=== PATIENT | female | born 1975 | race Caucasian/White ===

== ENCOUNTER 2017-03-28 11:44 | Emergency (ER) | payer OTHER, SELFPAY ==
[2017-03-28 11:45] VITALS: BP 129/68; PULSE 64; RESP 14; TEMP 36.6; O2SAT 99; BMI 26.4
[2017-03-28 13:11] VITALS: BP 125/91; PULSE 83; RESP 16; O2SAT 96
--- NOTE | 2017-03-28 13:20 | CT_ITS ---
STUDY: CT BRAIN WITHOUT CONTRAST REASON FOR EXAM: Female, 41 years old. Dizziness and headaches. Palpitations. RADIATION DOSAGE (If Supplied By Facility): CTDIvol = ( 44.99 ) mGy, DLP = ( 745.49 ) mGycm TECHNIQUE: Transaxial CT imaging of the brain was performed without administration of intravenous contrast material. Individualized dose optimization techniques were used for this CT. COMPARISON: Comparison is made with prior study dated July 10, 2014. FINDINGS: Normal soft tissue structures. Normal calvarium. Normal size ventricles and extra-axial spaces for the patient's age. Normal white matter tracts of the cerebral hemispheres. Normal basal ganglia and thalami. Normal brainstem. Normal cerebellum. There is no intracranial hemorrhage. There are no findings of an acute ischemic infarction. Normal visualized paranasal sinuses. CT/Brain/Head without Contrast IMPRESSION: Normal unenhanced CT scan of the brain. Electronically Signed: Jamel Curtis MD at 15:01 EST Tel [phone], Service support ,
[2017-03-28] MEDS: Meclizine 12.5 MG Tablet 25 MG PO (14:09)
[2017-03-28] MEDS: 0.9% Normal Saline 1,000 ML 999 ML IV (14:09)
[2017-03-28 14:20] LABS: AST(SGOT) 10 U/L (15-37); Alanine Aminotransfer ALT/SGPT 14 U/L (12-78); Albumin, Serum 3.8 g/dL (3.4-5.0); Alkaline Phosphatase 69 U/L (45-117); Anion Gap 7 (5-15); BUN 7 mg/dL (7-18); BUN/Creat Ratio 8.8 RATIO (10-20); Calcium,Total 8.6 mg/dL (8.5-10.1); Chloride 99 mmol/L (98-107); EST Glomerular Filtration Rate 84 mL/min (>60); Est Glom Filt Rate - Afr Amer 102 mL/min (>60); Estimated Creatinine Clearance 86.63 ml/min; Globulin 3.9 g/dL (2.2-4.2); Glucose 82 mg/dL (70-110); Potassium 3.5 mmol/L (3.5-5.1); Protein, Total 7.7 g/dL (6.4-8.2); Sodium Level 136 mmol/L (136-145)
[2017-03-28 14:30] LABS: Valproic Acid (Depakene) Level 68 ug/mL (50-100)
[2017-03-28 15:02] LABS: Pregnancy, Serum, hCG Quali. NEGATIVE Negative (0-9 Nonpreg)
--- NOTE | 2017-03-28 15:20 | ED.VISSUMM ---
- ER Visit Summary Date of Service: 03/28/17 Chief Complaint: Dizziness History of Present Illness: The patient is a 41 F patient presenting for evaluation secondary to dizziness. Patient states this started yesterday when she was rolling over in bed. She describes it as a spinning sensation seems to be worse with change position. Also has been associated with somewhat of an unsteady gait and intermittent right-sided headaches and generalized tingling. Of note the patient has a strong history of depression and is on multiple medications and recently underwent a upward titration of Depakote. She currently is on maximum dose 3 pills a day. She denies any visual changes. She denies any head injuries. She denies any fevers. Review of systems otherwise negative. Physical Examination: Vital signs are within normal limits, patient is afebrile. General: Patient is well-nourished well-developed and in no acute distress. Head: Normocephalic, atraumatic Eyes: Pupils equal round and reactive bilaterally, extra occular motion intact bialterally ENT: Moist mucous membranes Neck: Supple, no lymphadenopathy, no JVD, no meningismus CVS: Heart regular rate and rhythm, no murmurs, rubs or gallops, radial pulses 2+ bilaterally Resp: Respirations nondistressed, lung sounds clear bilaterally Abdomen: Soft, nontender, nondistended, no palpable masses, normal bowel sounds Back: Nontender Extremities: Nontender, atraumatic, active full range of motion, no peripheral edema Skin: warm, no rashes, no petechia Neuro: Alert and oriented x 4, CN 2-12 intact, no lateralizing neurological defecits, negative Roxana-Hallpike maneuver, no evidence of inducible nystagmus. Normal cerebellar testing. Psyc: Normal affect Test Results: CT brain found to be negative. CMP, Depakote level, and hCG all within normal limits. Emergency Department Course and Treatment: Patient presented secondary to dizziness. CT was performed rules out possibility of bleeding or other intracranial pathology. Chemistry and liver panels are normal. Depakote level is therapeutic, hCG found to be negative. Patient was given meclizine and had some improvement. At this point patient likely is experiencing somewhat of the medication side effect. Patient was recommended to take meclizine and follow-up with her primary care physician for this Disposition: Discharge Impression: 1. Probable medication side effect This note was generated with Soc[employer] software. It may contain incorrect words, spelling, and punctuation that were not noted in review of the chart prior to signing ED Disposition - Plan for ED Patient: Disposition: Home or Assisted Living Chief Complaint: Dizziness Diagnosis: Medication side effect Instructions: ED Dizziness [facility] Referrals: Nida Light MD [Primary Care Provider] - 1 Week
--- NOTE | 2017-03-28 15:25 | ED.DCSUM_ITS ---
- ER Visit Summary Date of Service: 03/28/17 Chief Complaint: Dizziness History of Present Illness: The patient is a 41 F patient presenting for evaluation secondary to dizziness. Patient states this started yesterday when she was rolling over in bed. She describes it as a spinning sensation seems to be worse with change position. Also has been associated with somewhat of an unsteady gait and intermittent right-sided headaches and generalized tingling. Of note the patient has a strong history of depression and is on multiple medications and recently underwent a upward titration of Depakote. She currently is on maximum dose 3 pills a day. She denies any visual changes. She denies any head injuries. She denies any fevers. Review of systems otherwise negative. Physical Examination: Vital signs are within normal limits, patient is afebrile. General: Patient is well-nourished well-developed and in no acute distress. Head: Normocephalic, atraumatic Eyes: Pupils equal round and reactive bilaterally, extra occular motion intact bialterally ENT: Moist mucous membranes Neck: Supple, no lymphadenopathy, no JVD, no meningismus CVS: Heart regular rate and rhythm, no murmurs, rubs or gallops, radial pulses 2 + bilaterally Resp: Respirations nondistressed, lung sounds clear bilaterally Abdomen: Soft, nontender, nondistended, no palpable masses, normal bowel sounds Back: Nontender Extremities: Nontender, atraumatic, active full range of motion, no peripheral edema Skin: warm, no rashes, no petechia Neuro: Alert and oriented x 4, CN 2-12 intact, no lateralizing neurological defecits, negative Zulma-Hallpike maneuver, no evidence of inducible nystagmus. Normal cerebellar testing. Psyc: Normal affect Test Results: CT brain found to be negative. CMP, Depakote level, and hCG all within normal limits. Emergency Department Course and Treatment: Patient presented secondary to dizziness. CT was performed rules out possibility of bleeding or other intracranial pathology. Chemistry and liver panels are normal. Depakote level is therapeutic, hCG found to be negative. Patient was given meclizine and had some improvement. At this point patient likely is experiencing somewhat of the medication side effect. Patient was recommended to take meclizine and follow- up with her primary care physician for this Disposition: Discharge Impression: 1. Probable medication side effect This note was generated with [employer] software. It may contain incorrect words, spelling, and punctuation that were not noted in review of the chart prior to signing ED Disposition - Plan for ED Patient: Disposition: Home or Assisted Living Chief Complaint: Dizziness Diagnosis: Medication side effect Instructions: ED Dizziness [facility] Referrals: Nida Light MD [Primary Care Provider] - 1 Week
[2017-03-28 15:36] VITALS: BP 135/81; PULSE 71; RESP 16; O2SAT 100
--- NOTE | 2017-03-28 15:37 | ED.RN ---
THIS NURSE REVIEWED D/C INSTRUCTIONS WITH PT. PT VERBALIZED UNDERSTANDING OF INSTRUCTIONS. IV D/C. IV CATHETER INTACT. PT TOLERATED WELL. PT DENIES FURTHER NEEDS OR QUESTIONS AT THIS TIME.
== END 2017-03-28 15:37 | disposition home or self-care (01) ==
PROVIDERS: Emergency Provider Emergency Medicine; Family Provider Internal Medicine; PCP Internal Medicine
DX: R42 Dizziness and giddiness (principal); R51 Headache; R26.81 Unsteadiness on feet; R20.2 Paresthesia of skin; F32.9 Major depressive disorder, single episode, unspecified; Z79.899 Other long term (current) drug therapy
CPT/HCPCS: 70450; 80053; 80164; 84703; 96360; 99282; J7030; A4216

== ENCOUNTER 2017-11-05 09:00 | Outpatient (RCR) | payer OTHER, SELFPAY ==
--- NOTE | 2017-11-05 10:20 | BH.SGPN.GN ---
Behaviors/Verbalizations/Mental Status: [] Pt eye contact fair, casually dressed, motor activity restless, speech normal rate and tone, mood anxious, congruent affect, thoughts linear and logical, no evidence of delusions or hallucinations. Client Response/Progress/Benefit: [] Client initially quiet, however seemed to connect with others and showed increased engagement by contributing her thoughts and feelings. Client connected with another group member's comments about anxiety depression being debilitating, shared she has a difficult time getting out of bed and showering. Client reported she has not easier time rationalizing why she should not take care of herself and has extreme difficulty with finding any reason or motivation to do anything throughout the day. Client identified her top stressors to include: Guilt and needing to be the best at her job. Client shared shared she is a lot more stressors but recognizes guilt need to be the best her job are the stressors that impact her the most. Client able to recognize that her guilt can result in her self sabotaging because she starts to believe I do not deserve to feel happy. Client mentioned multiple times throughout session, how do you stop thinking that way and seemed to benefit from support and feedback from peers. Client to continue IOP level of care to stabilize mood, improve daily functioning and prevent decompensation. Narrative Note: []
--- NOTE | 2017-11-05 11:30 | BH.SGPN.GN ---
Behaviors/Verbalizations/Mental Status: []Pt eye contact fair, casually dressed, motor activity restless, speech normal rate and tone, mood anxious and depressed, congruent affect, thoughts linear and logical, no evidence of delusions or hallucinations. Client Response/Progress/Benefit: []Client demonstrated increased comfort and engagement during group activity. Client verbalized her thoughts and ideas during group activity and made supportive comments to others. Client reported being able to stay calm in the moment and staying focused on the specific task helped the group be successful with managing stress in the moment. Client shared she connected with all of the A's from the 4 A's of managing stress, however struggles with believing she can apply the strategies in skills due to her current negative thought patterns. Client shared she recognizes her challenge of setting boundaries often increases her stress level because she tends to overload herself with tasks that she can't complete. Client seemed to benefit from learning about various strategies to help decrease and manage stress. Narrative Note: []
--- NOTE | 2017-11-05 15:56 | BH.MDN ---
Multi-Disciplinary Note - Note 30-min Individual Time Started:: 09:30 Date: 11/05/17 Purpose of session/treatment goals addressed:: Met with pt at her request to ease anxiety related to starting the program as this was her first day. Updated previous intake assessment to ensure most accurate information. Used the session to identify treatment plan goals and to assess current risk. Eye Contact:: Good Motor Activity:: Restless Appearance:: Casual Speech:: Appropriate Mood:: Anxious, Depressed Affect:: Congruent Thoughts:: Linear, Logical, No evidence of hallucinations/delusions noted Staff Interventions:: Allowed pt to vent frustrations, fears, and emotions which are affecting daily functioning. Utilized ME techniques to elicit change behaviors. Answered questions reagrding IOP to ease anxiety. Client Response:: Pt apologized for not starting IOP last week as discussed, however stated that her anxiety, fear, and depression kept her from following through. We processed her emotions related to IOP and she stated that she knows that she needs to start the program. Discussed recent stressors related to home life as she is not happy and feels that her family can go on living without me and it won't be a big deal beleiving that she is not appreciated which is a big trigger to her depression and anxiety. 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 Currently not linked with any MH outpatient providers. Indetified goals to reduce depressive symptoms, increase motivation, decrease anxiety, and learn coping strategies for negative thoughts. Risks/Concerns:: No risks of concerns noted. Denies any active suicidal ideations, plan, or intent. Reports that she has fleeting suicidal ideations which are chronic in nature. Identified protective factors such as children and work. 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 Does not present as imminent danger to self due to no active suicidal ideations, plan, or intent. Progress Toward Goals/Plan:: Limited progress noted as this way pt's first IOP session. Benefited from counseling to ease anxiety related to first day in IOP. Will continue in IOP to stablize mood, decrease depression, decrease intensitiy, frequency, and duration of SI, and prevent further decompensation. Time Stopped:: 10:00
--- NOTE | 2017-11-06 09:07 | BH.SGPN.GN ---
Behaviors/Verbalizations/Mental Status: [Client maintained good, at times intense eye contact, casually dressed - grooming and hygiene well tended to, motor activity WNL - appearing restless when her turn to process, mood depressed, irritable, expressed as angry and driven, affect congruent, thoughts linear and logical, no evidence of delusions or hallucinations. Therapist reviewed client?s symptom tracker to assess for intensity of mental health symptoms and identify risk for suicide. No signs of suicidal ideation, plan, or intent to date.] Client Response/Progress/Benefit: []Pt was an active participant in group discussion. Emotion for today is ?angry, driven, scared?. Shared that she had not arrived home from work until 4am this morning and discussed feeling tired and frustrated as a result. Shared a miscommunication with a support which resulted in pt taking on more responsibilities than she can handle. Insight that she is the one responsible for setting boundaries and reports plans to do so this afternoon. Expressed plans to communicate her needs with her friend this afternoon. Progress noted per pt report. Benefited from group support, encouragement, and feedback. Will continue IOP tx to prevent decompensation, increase mood stability, and reduce mental health sx severity. Narrative Note: []
--- NOTE | 2017-11-06 10:24 | BH.SGPN.GN ---
Behaviors/Verbalizations/Mental Status: []Client alert and oriented, neatly dressed and groomed. Eye contact good. Motor activity appropriate at the beginning and middle of group then became restless. Speech at the beginning and middle of group was within normal range, but nearing the end of session became circumstantial and rapid. Affect congruent, mood anxious. Thoughts linear, logical, no signs of hallucinations or delusions at the beginning and middle of group. Client's thoughts became racing nearing the end of group when discussing a trauma trigger. Client Response/Progress/Benefit: []client responded well to session, receptive to feedback and gentle challenging. Client appeared to connect with the quote sharing, comfort keeps you stuck and so does society. Client shared she constantly feels pressured to be the best and make positive changes which increases clients anxiety and makes client feel like she can never be satisfied. Client processed with the group the different emotions associated with change and how these emotions impact how one manages change. Client stated for her, change typically makes client feel paralyzed, panicked, and overwhelmed which has negatively impacted how client views change. Client began experiencing anxiety symptoms while discussing a past situation. Client able to calm down during break using grounding techniques with therapists help. Client appeared to benefit from increasing awareness of how emotions impact how one manages change. Clients progressed limited as it is her second day of IOP. Client to continue IOP to promote mood stability and prevent decompensation
--- NOTE | 2017-11-06 11:33 | BH.SGPN.GN ---
Behaviors/Verbalizations/Mental Status: []Client alert and oriented, neatly dressed and groomed. Eye contact good. Motor activity appropriate. Speech within normal limits. Affect full, mood euthymic- improved from previous session. Thoughts linear, logical, no signs of hallucinations or delusions. Client Response/Progress/Benefit: []Client responded well to session, contributing positively to discussion. Client engaged in the group activity that portrayed what change can look like an feel like. Client reported the activity was frustrating at times because I wanted to be the best and get the highest number. Client shared she is aware that her all or nothing thinking and high expectations have been a barrier for client when faced with change. Client identified when she got hired for her current job as a time when she experienced a positive change. Client helped the group create strategies to better manage change such as identifying barriers, reaching out to positive supports, and challenging unrealistic expectations. Client appeared to benefit from identifying times when change was positive. Progress noted in clients increased self-awareness. Client to continue IOP to increase mood stability and prevent decompensation.
--- NOTE | 2017-11-07 10:15 | BH.SGPN.GN ---
Patient joined group from [id number] Behaviors/Verbalizations/Mental Status: []Pt eye contact fair, casually dressed, motor activity restless, speech normal rate and tone, mood depressed and anxious, constricted affect, thoughts linear and logical, no evidence of delusions or hallucinations. Client Response/Progress/Benefit: []Pt active participant AEB pt contributing to group and engaging in activity. Pt connected with the quote stated that often the right path is not easy. Pt recognized a pitfall for herself is overreacting to small issues and problems. When processing activity pt connected the importance of breathing to keep self calm in the moment. Pt also identified being open to others ideas and strategies could be helpful when trying to overcome personal pitfalls in life. Pt seemed to benefit from increased awareness of the impact personal pitfalls can have on progress. Narrative Note: []
--- NOTE | 2017-11-07 11:25 | BH.SGPN.GN ---
Behaviors/Verbalizations/Mental Status: []Pt eye contact fair, casually dressed, motor activity restless, speech normal rate and tone, mood anxious and depressed, tearful at times, congruent affect, thoughts linear and logical, no evidence of delusions or hallucinations. Client Response/Progress/Benefit: []Pt contributed positively to discussion and listened attentively to others. Pt reported her biggest personal pitfalls include: continuing to make the same choices over and over again, distorted thought that she is not allowed to fail and self-hate talk. Pt became tearful when talking about her self-hate talk because she stated it's so ingrained it's hard for her to believe anything positive she says about herself. Pt recognized it's important to have awareness of her personal pitfalls because then she can do something about it. Pt reported her goal for the next couple of days is to catch myself being negative towards herself. Pt seemed to benefit from increased self-awareness of her personal pitfalls and identifying a goal that can help her focus on overcoming one of her pitfalls. Pt progress AEB pt's increased self-awareness and increased engagement in treatment. Pt to continue IOP level of care to stabilize mood and prevent decompensation. Narrative Note: []
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
--- NOTE | 2017-11-07 12:56 | BH.DR.ITP ---
Initial Treatment Plan - Patient Information Visit Information: ADMISSION DATE: EXPECTED LOS: 4-6 weeks Diagnoses:: Bipolar disorder most recent episode depressed F 31.4 - Problems/Symptoms Problem #1:: Mood instability/mixed mood symptoms Symptom:: Sad mood, anhedonia, isolative behavior, irritability, passive thoughts of , biologic disruption of sleep and appetite Problem #2:: Anxiety Symptom:: Rumination, panic attacks
--- NOTE | 2017-11-10 09:05 | BH.SGPN.GN ---
Behaviors/Verbalizations/Mental Status: [Client maintained good eye contact, casually and cleanly dressed, motor activity restless - client shifting in seat and bouncing leg, speech normal tone - circumstantial, mood euthymic, affect congruent, thoughts linear and logical, no evidence of delusions or hallucinations. Therapist reviewed clients symptom tracker to assess for intensity of mental health symptoms and identify risk for suicide. No signs of suicidal ideation, plan, or intent to date. ] Client Response/Progress/Benefit: [Client responded well to session was actively engaged throughout. She did well to provide input to the discussion as well as positive support fellow participants as they discussed their own thoughts, feelings, and frustrations. Client indicated that she had difficulty sleeping over the weekend and expressed feeling as though she had hit manic mood. Client further elaborated that she had up for over 30 hours and experienced several mood swings between crying and feeling really determined but ultimately felt that her determination had won out in the end. She went on to discuss experiencing several positives over the weekend such as successfully accomplishing something for her community however declined to go into detail. Client is additionally working to identify how often she utilizes negative thinking styles in order to begin shifting her mindset. Client responded well. To benefit from being challenged by the group to reframe and replace each of these negative thoughts with 1 positive thought when identifying them. Client displaying progress in treatment regarding her levels of insight related to how her current thoughts impacts her mood and behaviors. Recommended continued IOP treatment in order to prevent decompensation as well as continue to improve client ability to manage mental health symptoms and consistently apply cognitive restructuring techniques.] Narrative Note: []
--- NOTE | 2017-11-10 10:20 | BH.SGPN.GN ---
Behaviors/Verbalizations/Mental Status: []Client alert and oriented, neatly dressed and groomed. Eye contact good. Motor activity appropriate. Speech rapid. Affect full, mood euthymic. Thoughts linear, logical, no signs of hallucinations or delusions. Client Response/Progress/Benefit: []client responded well to session, active participant. Client appeared to connect with the quote sharing, there can be a lot of reasons why we view things as impossible. Client reported mental health, the news and social media, and cognitive distortions can make some people view situations in life as impossible. Client stated having an impossible mindset can keep someone stuck in a negative loop like a figure-eight. Client engaged in an activity that at first appeared impossible, but with different ideas and communication can be solved. Client provided encouragement and ideas throughout activity. Client appeared to benefit from increasing awareness of how the impossible mindset can impact mental health. Progress noted in clients improved awareness of warning signs and barriers, but she continues to struggle with implementing internal coping skills rather than relying on external supports.
--- NOTE | 2017-11-10 11:20 | BH.SGPN.GN ---
Behaviors/Verbalizations/Mental Status: []Client alert and oriented, neatly dressed and groomed. Eye contact good. Motor activity appropriate. Speech within normal limits. Affect congruent, mood euthymic, reporting hypomania. Thoughts linear, logical, no signs of hallucinations or delusions. Client Response/Progress/Benefit: []Client responded well to session, providing insight to discussion, but engaging in side conversations that may not have been appropriate for a group setting. Client engaged in discussion of growth versus fixed mindset. Client self-identified with the fixed mindset sharing Im always all or nothing, but reported she is actively trying to have a more growth mindset. Client reported liking her current job was once something client thought would be impossible, but now client enjoys it. Client stated she is currently struggling with spending money to cope with her lack of physical connection with her . Client was encouraged to present this barrier to her individual IOP therapist to help client more effectively manage this barrier. Client helped the group identify internal and external resources to help overcome barriers such as positive self-talk, communication, and seeking support. Client appeared to benefit from learning about the benefits of a growth mindset and from identifying current barriers. Client seems to be progressing with increased self-awareness, but continues to report cognitive distortions, unrealistic expectations, and difficulty setting boundaries which may impact her progress.
--- NOTE | 2017-11-10 12:31 | BH.MTP_ITS ---
Master Treatment Plan - Patient Information Program Physician:: Dr. Rios Primary Therapist:: José Luis Phan - Psychiatric Diagnoses Psychiatric Diagnoses:: Bipolar, most recent depressed with mixed episodes Diagnosis Code(s):: F31.4 - Estimated LOS Estimated LOS (in weeks):: 8 Problem/Goal #1 - Problem/Goal #1 Stated Goal:: Client will increase mood stability and decrease depressive symptoms, isolative behaviors, and suicidal ideation due to Bipolar I through Intensive Outpatient Program Description of Barriers: chronic symptoms for 20 years, limited confidence in the effectiveness of counseling for her symptoms, Functional Impact: Pt's depression continues to impact relationships, social activities, and overall functioning. Wiil often spend days sleeping, avoiding others, and isolating. Reports increased in frequency, duration, and intensity of fleets suicidal thoughts. Goal Relevant Strengths/Supports: Appears motivation, intelligent, engaged in IOP - Objectives Objective #1 Stated Objective: Work with client to develop a ?crisis plan? which includes emergency telephone numbers, 3-4 coping strategies for SI, lists of supports, positive aspects of life, and motivations. Work with client to identify 3-4 sources or triggers to suicidal ideations to increase insight. Identify 3 effective thought-stopping skills to utilize. Interventions: Throught individual and group counseling will work with client to identify effective coping strategies and steps to take in time of mental health crisis. Discharge Criteria: Client will have achieved this goal once she completes safety plan and is able to utilize coping and thought replacement strategies. Target Date: 01/05/18 Review Date: 12/05/17 Objective #2 Stated Objective: Client will identify and replace 2-3 negative thinking patterns that mediate feelings of hopelessness and helplessness. Will be able to challenge and replace negative thoughts. Interventions: Through groups and individual therapy, pt. will be provided with education on cognitive distortions, schemas, mistaken beliefs, and identifying and combating negative self-talk. Therapist will help pt. explore connection between thoughts, feelings, and actions. Discharge Criteria: Pt. will be able to identify 2-3 negative thinking patterns and be able to effectively stop, challenge, or cope with those negative thoughts. Target Date: 01/05/18 Review Date: 12/05/17 Problem/Goal #2 - Problem/Goal #2 Stated Goal:: Stabilize anxiety level while increasing ability to function and decreasing panic attacks and ruminative thoughts on a daily basis through Intensive Outpatient Program. Description of Barriers: chronic symptoms for 20 years, limited confidence in the effectiveness of counseling for her symptoms, low self-esteem. Functional Impact: Anxiety impacts social activities and relationships. Panic attacks impacting daily functioning. Goal Relevant Strengths/Supports: appears motived, engaged in IOP, intelligent. - Objectives Objective #1 Stated Objective: Client with develop her own individualized Anxiety/Stress managment plan to implement during times of anxiety, panic, or overwhelming stress. Interventions: through group and individual sessions pt will be provided with education, coping skills, and strategies to manage symptoms. Discharge Criteria: Pt will have completed his own indivudalized anxeity management plan which include a step by step concrete plan to cope with panic, ruminations, and overwhelming stress. Target Date: 01/05/18 Review Date: 12/05/17 Objective #2 Stated Objective: Complete Cost/Benefit Analysis of Maintaining the Anxiety listing advantages and disadvantages of negative thoughts, fear, or anxiety. Interventions: Through individual and group counseling pt. will be provided with education on anxiety and effective coping skills. Will explore more in- depth with pt. cause and triggers to anxiety as well as obstacles to overcoming anxiety. Discharge Criteria: Will have completed cost analysis and be more self-aware of triggers to anxiety. Target Date: 01/05/18 Review Date: 12/05/17
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
--- NOTE | 2017-11-14 13:45 | BH.COMM ---
Communication Note - Communication with Client Communication Note: Pt cancelled today due to having to work late at her job.
--- NOTE | 2017-11-17 09:02 | BH.SGPN.GN ---
Behaviors/Verbalizations/Mental Status: []Client alert and oriented, hygiene good, dress casual. Eye contact poor, but then intense when talking about frustrations. Motor activity restless. Speech within normal limits, but using short remarks. Affect flat- tearful. Mood irritable. Thoughts linear, logical, no signs of hallucinations or delusions. Reviewed clients symptom tracker, no risk for suicidal ideation, plan, or intent as of 11/17/17. Client Response/Progress/Benefit: []Client responded somewhat well to session, tearful and giving short responses, but connecting with peers. Client shared feeling angry today due to feeling irrelevant at home and as though I'm never doing enough. Client stated part of her wants to not return home today and spend the next two nights in her car so the people in her life can think about how they treat me. Client received feedback from peers on communicating with her family so they not worry about client, which client did not appear receptive to. Client reported she plans to have an open mind today during group and take notes to help improve her mood. Client seemed to benefit from venting her current stressors in a safe environment. Progress noted in clients increased self-awareness, but she continues to struggle with emotional regulation and communicating needs.
--- NOTE | 2017-11-17 10:20 | BH.SGPN.GN ---
Behaviors/Verbalizations/Mental Status: [] Pt eye contact good, casually dressed, motor activity appropriate, speech normal rate and tone, mood anxious, congruent affect, thoughts linear and intact, no evidence of delusions or hallucinations. Client Response/Progress/Benefit: []Pt active participant AEB contributing thoughts and ideas to discussion, connected with peers. Pt reported often her reaction to a problem does not meet the size of the problem. Pt shared she recognizes when she overreacts it often creates additional problems. Pt recognized she cannot solve a problem if continues to have distorted and unhealthy thinking patterns. Pt struggled with recognizing what she can do to problem solve more effectively. With challenging of distorted thoughts pt recognized her thoughts continue to keep her stuck from forward progress. Pt seemed to benefit from learning about a problem solving method and practicing problem solving in the moment. Pt could identify the importance of communication and working as a team as helpful strategies to effectively problem solve. Narrative Note: []
--- NOTE | 2017-11-17 11:20 | BH.SGPN.GN ---
Behaviors/Verbalizations/Mental Status: []Pt left group at 1214 to meet with individual IOP counselor. Pt eye contact good, casually dressed, motor activity appropriate, speech normal rate and tone, mood agitated, congruent affect, thoughts linear and intact, no evidence of delusions or hallucinations. Client Response/Progress/Benefit: []Pt contributed to discussion and listened attentively to others. Pt struggled with identifying a problem she could work on problem solving in a short amount of time. Pt reported her current problem is difficulty with her son not following through with basic requests and not showing initiative to be productive. Pt expressed frustration with her as well for not supporting her requests/chores given to her son. Pt shared when her son doesn't follow through with the request it will result in her raising her voice and not communicating effectively. Pt accepted feedback from peers. With therapist assistance pt recognized she might need to focus on one problem area at a time with her son instead of trying to deal with all the issues at once. Pt left group before could share the steps she identified to help her problem solve. Pt seemed to benefit from critically thinking what she can do to help her situation. Pt showing progress with increased self-awareness of distorted and unhelpful thought patterns. Pt to continue IOP level of care to stabilize moods, improve daily functioning, and prevent decompensation. Narrative Note: []
--- NOTE | 2017-11-17 15:25 | BH.MDN ---
Multi-Disciplinary Note - Note 45-min Individual Time Started:: 12:15 Date: 11/17/17 Purpose of session/treatment goals addressed:: Used the session to assess current symptoms, review progress in IOP, and to address pt's current concerns regarding family conflicts. Eye Contact:: Intense Motor Activity:: Restless Appearance:: Casual Speech:: Appropriate Mood:: Irritable Affect:: Congruent Thoughts:: Linear, Logical, No evidence of hallucinations/delusions noted Staff Interventions:: Utilized ME techiniques to elicit change behaviors. Allowed pt to vent frustrations at home. Problem-solved stressors and modeled thought-changing strategies to use to better manage emotions. Client Response:: Pt reports increased irritability over the weekend mainly related to frustrations with her son. She discussed several incidents in which her son did not follow through with requests to complete chores or tasks around the house. She discussed how this made her feel unappreciated, irrelavant, and ignored which increased her anger and depression. Due to her anger she reports that she contemplated simply leaving the house and not telling her and son. Able to identify that this would be passive-aggressive and cause more conflict with her family. Insight into her desire to isolate and cause emotional distress to family in a way to teach them to appreciate her. Showing increased awareness of dysfunctional communication and roles in the family and how that affects her emotions. This was a significant concern for pt so we spend the entire session addressing this. Risks/Concerns:: Denies any suicidal ideations, plan, or intent. She does not have any plans to leave her family and spend the night in her car as she had reported during process group. Smiling towards the end of the session and reports plan to address concerns at home through assertive communication style. Progress Toward Goals/Plan:: Pt reports progress towards goals and verbalizes decrease in depressive symptoms. Overall a decrease in suicidal ideations reporting none in the past week. Continues to have trouble managing emotions on a consistent basis. Will continue in IOP to prevent decompensation, stablize mood, and learn more effective strategies to manage emotions. Time Stopped:: 13:00
--- NOTE | 2017-11-19 12:40 | BH.COMM ---
Communication Note - Communication with Client Communication Note: Pt called in to cancel IOP for today and the rest of the week. She reports that work has required her to work 1st shift for the remainder of the week. She reports that she will be able to attend 4 days next week and has made it clear to employer she cannot work 1st shift. Will follow up on Friday and to clarify importance of attendance due to the severity of her symptoms and to benefit from IOP.
--- NOTE | 2017-11-24 09:00 | BH.SGPN.GN ---
Behaviors/Verbalizations/Mental Status: []Client alert and oriented, neatly dressed and groomed. Eye contact poor, looking away as group members talk to her. Motor activity appropriate. Speech within normal limits. Affect flat-tearful, mood dysthymic, irritable. Thoughts linear, logical, no signs of hallucinations or delusions. Reviewed client?s symptom tracker, no risk for suicidal ideation, plan, or intent as of 11/24/17. Client Response/Progress/Benefit: []Client responded somewhat well to session, providing supportive statements to peers, but did not appear receptive to feedback from peers as shown by her short remarks. Client reports feeling ?lousy? today after telling her she wanted a divorce this weekend. Client shared she does not really know if she wants a divorce or not, but client wants change. Client stated the issues in their relationship are ?all my fault? and client recognizes she self-sabotages. Client reported plans to talk with supports today to help cope with her emotions. Client appeared to benefit from gaining supportive statements from peers. Progress noted as client talked with her rather than using indirect communication, however, client continues to struggle with self-sabotaging behaviors which may hinder her progress.
--- NOTE | 2017-11-24 10:12 | BH.SGPN.GN ---
Behaviors/Verbalizations/Mental Status: []Client alert and oriented, casually dressed and groomed. Eye contact good. Motor activity appropriate. Speech within normal limits. Affect congruent, mood agitated, euthymic. Thoughts linear, logical, no signs of hallucinations or delusions. Client Response/Progress/Benefit: []Pt was an active participant in discussion and activity as evidenced by pt providing input throughout, listening to others. Group worked together to come up with common negative forces in their lives which can hold them back from growth. Negative forces included: mental illness, negative thoughts, toxic people, and too many responsibilities. Group then worked together to identify common positive forces which help us grow. Theses included: Healthy coping skills, positive support, self-care, positive self-talk and asking for help/IOP tx. Pt reported she believes personal growth comes from how we respond to and overcome difficult experiences. Pt was attentive during psychoeducation on the importance of utilizing many aspects of positive forces to help one grow. Benefited from group with increased insight and awareness on the impact of negative and positive forces on mental wellness. Progress noted in increased insight. Recommended continued tx to reduce mental health sx severity, increase positive change behaviors, and prevent decompensation. Narrative Note: []
--- NOTE | 2017-11-25 08:26 | BH.COMM ---
Communication Note - Communication with Client Communication Note: Pt called in an cancelled for IOP today again due to work. Attendance continues to be obstacle for progress.
--- NOTE | 2017-11-26 10:18 | BH.SGPN.GN ---
Behaviors/Verbalizations/Mental Status: []Client alert and oriented, neatly dressed and groomed. Eye contact fair. Motor activity appropriate. Speech tangential-engaging in side conversations. Affect flat-tearful, mood depressed. Thoughts linear, logical, no signs of hallucinations or delusions. Client Response/Progress/Benefit: []Client responded somewhat well to session, tearful throughout and engaging in side conversations, but taking notes. Client reported communication is important for mental health recovery, however, client shared her communication has hindered her progress. Client identified using aggressive communication style with her primary supports. Client shared this has negatively impacted her mental health and relationships as it makes communicating difficult and makes client feel bad. Client appeared to benefit from gaining insight to how her communication style impacts mental health and relationships. Client to continue IOP to improve communication skills and increase mood stability.
--- NOTE | 2017-11-26 11:20 | BH.SGPN.GN ---
Behaviors/Verbalizations/Mental Status: []Client alert and oriented, dress casual. Eye contact fair. Motor activity appropriate. Speech within normal limits- using instigating talk at times towards a peer. Affect flat-tearful, mood depressed. Thoughts linear, logical, no signs of hallucinations or delusions. Client Response/Progress/Benefit: []Client responded somewhat well to session, participating, but using instigating phrases at times towards a peer. Client used self-deprecating talk during the activity which impacted client?s attitude towards to activity and active listening skills. Client tearfully reported, ?today has helped me realize how terrible I have been communicating to my family.? Client continued to use self-deprecating talk, but she was gently challenged by a peer and reminded to use self-compassion when trying to improve communication. Client?s goal for the week is to apologize to her family for client?s past aggressive communication. Client appeared to benefit from gaining insight to how often she uses negative self-talk and how it impacts her mental health.
--- NOTE | 2017-11-26 16:19 | BH.MDN ---
Multi-Disciplinary Note - Note 45-min Individual Time Started:: 12:15 Date: 11/26/17 Purpose of session/treatment goals addressed:: Pt was teraful after 3rd group and this therapist met with her to assess. Eye Contact:: Fair Motor Activity:: Appropriate Appearance:: Casual Speech:: Appropriate Mood:: Anxious, Depressed Affect:: Congruent Thoughts:: Linear, Logical, No evidence of hallucinations/delusions noted Staff Interventions:: Utilized MN techniques to elicit change behaviors. Allowed pt to vent. Provided education on communication styles and initial ways to make communication more assertive. Client Response:: Pt is tearful reporting regret and guilty feelings for how she has treated her family in the past. Group topic today was communication styles and she identified that her primary style is aggressive. Awareness of how this communication style has impacted her relationship with her family. Reports that she had called her and daughter and apologized for her past actions however continues to ruminate feeling that her actions in the past will negatively effect her children the rest of thier lives. Able to see the benefits to increased awareness on her communication style and was able to verbalize some ways to make changes. Has plan to discuss improving communication with son later on today. Discussed recent situation where she was verbally agressive towards daughter and now realizes that pt was in the wrong and daugther's actions were appropriate. More hopeful and optimistic towards the end of the session making jokes and smiling. Risks/Concerns:: Pt denies any suicidal ideations, plan, or intent. Contracts for safety. Future-oriented (work, speaking with family about improving communication). 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 No risks or concerns noted. Progress Toward Goals/Plan:: Pt has been making progress in IOP. Despite emotional distress it appears that this was related to increased awareness and insight into how her communication effects her family relationships. Some difficulty with progressing through treamtent plan goals as she will often present to individual sessions with crisis or immediate issues to address. Attendance has also been an obstacle for progress as pt has been inconsistent. Plan is to continue with IOP to stablize mood, prevent further decompensation, and decrease depressive symptoms. Pt continues to decline family session despite ruminating extensively on family dynamics. Time Stopped:: 13:00
--- NOTE | 2017-11-28 09:50 | BH.COMM ---
Communication Note - Communication with Client Communication Note: Cancelled IOP for today
--- NOTE | 2017-12-02 09:51 | BH.COMM ---
Communication Note - Communication with Client Communication Note: Reports that due to issues at work only able to attend 2 days this week. This therapist plans on meeting with pt to discuss attendance concerns as this is impacting progress.
== END 2017-11-30 23:59 ==
LOC: BHIOP 09:00
PROVIDERS: Family Provider Internal Medicine; PCP Internal Medicine; Visit Provider Psychiatry & Neurology Psychiatry
DX: F31.4 Bipolar disorder, current episode depressed, severe, without psychotic features (principal); F41.9 Anxiety disorder, unspecified; F43.10 Post-traumatic stress disorder, unspecified; Z79.899 Other long term (current) drug therapy
CPT/HCPCS: H0035; 90832; 90834; 90837; 90853

== ENCOUNTER 2017-12-03 09:00 | Outpatient (RCR) | payer OTHER, SELFPAY ==
--- NOTE | 2017-12-03 09:05 | BH.SGPN.GN ---
Behaviors/Verbalizations/Mental Status: []Client alert and oriented, dress casual-wearing work clothes from last night and has a burn on her neck. Eye contact fair. Motor activity appropriate. Speech within normal limits. Affect congruent, mood euthymic, irritable. Thoughts linear, logical, no signs of hallucinations or delusions. Reviewed client?s symptom tracker, no risk for suicidal ideation, plan, or intent as of 12/03/17. Client Response/Progress/Benefit: []Client responded well to session, active participant. Client reports feeling ?amazing? today because she made it to group and she is surrounded by positive support. Client shared her current positives are sticking with boundaries she set with her father and sister as well as plans to focus on self-care today. Client reported her current stressor is feeling emotionally and physically exhausted from work and lack of sleep. Client was encouraged by peers to take care of basic needs and self-care to prevent burnout. Client appeared to benefit from receiving supportive statements. Progress noted as client was able to stick with her boundaries with family, but she continues to struggle with setting boundaries at work which may lead to burnout.
--- NOTE | 2017-12-03 15:56 | BH.MDN ---
Multi-Disciplinary Note - Note 30-min Individual Time Started:: 12:15 Date: 12/03/17 Purpose of session/treatment goals addressed:: Used the session to assess currently symptoms and progress in the program. Addressed attendance issues and concerns regarding burnout. Eye Contact:: Good Motor Activity:: Appropriate Appearance:: Casual Speech:: Appropriate Mood:: Anxious, Depressed Affect:: Congruent Thoughts:: Linear, Logical, No evidence of hallucinations/delusions noted Staff Interventions:: Utilized AR techiniques to elicit change behaviors. Facilitated conversation on attendance and negative effects of her unrealistic schedule. Pointed out cogntive distortions. Client Response:: This therapist was recently made aware of pt's unrealistic work and treatment schedule in which she is working 11p-8am , driving an hour to IOP, participating in IOP for 3 hours then returning home, sleeping minimally, and then returning to work. Pt admits that this has affected her attendance, focus, concentrating, and retention of information. Admits this schedule has increased irritability as well. Able to identify that she is going to burnout or breakdown. 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 People pleasing behaviors and inability to set boundaries are effecting her daily functioning. She reports improved mood since staring IOP with decrease in frequency, duration, and intensitiy of suicidal ideations and passive thoughts of . Reports improved communication with family. She reports that she feels as if taking a continuous leave from work would be most beneficial and agreed to talk with employer. Risks/Concerns:: No risks or concerns noted. Progress Toward Goals/Plan:: Pt has made minimal progress while in IOP mainly due to attendance concerns and fatigue related to unrealistic schedule. Reports decrease in intensity, frequency, and duration of sucidal ideations and passive thoughts of . Improved communication with family. Increased awareness of negative thoughts, effective coping skills, and cognitive distortions, however is not progressing on treatment plan goals. 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 Has not completed take home assignments from group or individual and has trouble recalling information discussed in group due to fatigue from work schedule. While support and skills while in IOP are beneficial it is likely once support is gone she will regress quickly unless she learns and is able to implement skills on consistent basis and not rely on others to cope with symptoms. Had a conversation about attendance and how unrealistic schedule is negatively impacting her MH symptoms, family life, and overall wellness. Pt reports on occassion she has slept in her car due to fatigue. Plan is for patient to speak with her employer about reduced schedule or leave to focus on treatment and recovery. Continues to struggle with daily mood swings, anger outbursts, depressive symptoms, crying spells, anxiety, and fleeting SI. Time Stopped:: 12:45
--- NOTE | 2017-12-05 09:06 | BH.SGPN.GN ---
Behaviors/Verbalizations/Mental Status: [Client maintained consistent eye contact and was willing to engage in the discussion. She was casually dressed, appropriate grooming however appearing to be tired ? red eyes and face, speech normal rate and tone, mood appearing euthymic, anxious, relieved, affect congruent with mood, thoughts linear and logical, no evidence of delusions or hallucinations.] Client Response/Progress/Benefit: [Client did well to engage in session and provided input to the group both regarding her own progress as well as supporting the progress of others. CLient encouraged a fellow participant who was struggling with negative thinking as they had not progressed as quickly as they might have hoped. CLient additionally did well to provide support to a participant who was contemplating taking FMLA her job. This was beneficial to client as she discussed having to make a similar decision earlier in the week and was glad that she had. CLient displayed progress in her ability to identify the consequences of not taking a step back from work as she could see other areas of her life beginning to struglle. 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 Client recommended continued tx with focus on boundaries with herself and others as well as on maintaining healthy balance.] Narrative Note: []
--- NOTE | 2017-12-05 10:20 | BH.SGPN.GN ---
Behaviors/Verbalizations/Mental Status: [] Pt eye contact good, casually dressed, motor activity appropriate, speech normal rate and tone, mood euthymic, congruent affect, thoughts linear and intact, no evidence of delusions or hallucinations. Client Response/Progress/Benefit: []Pt active participant as evidenced by pt contributing to her thoughts and feelings throughout discussion and listened attentively to others. Patient to relate to the that thoughts are so powerful we can create an environment and destroy her thoughts alone. Patient reported there are many situations in which she has made a situation worse because of the way that she was thinking. Client connected with peers that immediately she went to the negative versus seeing our thoughts can also create positive. Patient could relate to several of the cognitive distortions that were reviewed, identifying catastrophizing as a distortion that she often uses. Patient seemed to benefit from increased awareness of distortions and recognizing how her thought processes can negatively impact her mood and progress. Narrative Note: []
--- NOTE | 2017-12-05 11:30 | BH.SGPN.GN ---
Behaviors/Verbalizations/Mental Status: [] Pt eye contact good, casually dressed, motor activity appropriate, speech normal rate and tone, mood euthymic, congruent affect, thoughts linear and intact, no evidence of delusions or hallucinations. Client Response/Progress/Benefit: [] Client engaged during small group discussion as evidenced by her sharing personal examples of her own distorted thought patterns. Client came connected with catastrophizing cognitive distortion and all or nothing thinking. Client gave several examples of situations in her personal life in which her distorted thoughts negatively impact the situation. Client seemed to benefit from increased awareness of distortions as well as rehearsing and practicing how to reframe her challenges to her thought patterns. Client to continue IOP level of care to stabilize moods and prevent decompensation. Narrative Note: []
--- NOTE | 2017-12-05 13:24 | PCM.PN.BLA ---
Progress Note Patient is seen in follow-up for bipolar disorder most recent episode depressed with mixed symptoms, anxiety unspecified, PTSD, cluster B traits. History is been obtained per interview with patient, discussion with staff, review of chart. Case discussed with treatment team. Chief complaint Mood symptoms and anxiety Interim history Staff is noted symptoms consistent with ongoing mood cycling. Patient reports I have been all over the place. She has episodes of increased energy and irritability followed by episodes of depression anhedonia and decreased energy. She has had poor sleep hygiene over the past 2-3 weeks due to her work schedule. She started FMLA 2 days ago. She reports grief and guilt about taking FMLA. She notes that she has had depression earlier this week. Yesterday her mood improved. I am afraid I might be getting manic. She acknowledges ruminative anxiety about her diagnosis. She has been participating in activities. She denies suicidal or homicidal ideation. Denies symptoms consistent with psychosis. She slept 10 hours per night for the last 2 days since taking FMLA. Appetite normal. Denies nausea vomiting or diarrhea. Compliant with medications including Effexor X are 225 mg daily and Depakote 250 mg twice daily. She has not yet obtained a Depakote level. Mental status exam Alert and oriented . No acute distress. Ambulatory with normal gait and station. Appears stated age. Casually dressed and groomed. Appropriate hygiene. Cooperative with interview. Good eye contact. No psychomotor agitation or retardation. Mood improved. Affect congruent. Speech is clear and with regular rate and rhythm. Language fluent. Thought process organized. Associations logical. Thought content significant for ruminative anxiety. No suicidal or homicidal ideation related or detected. No symptoms consistent with psychosis noted or detected. Immediate recent and remote memory grossly intact. Attention and concentration are fair. Estimated intelligence and fund of knowledge average. Judgment and insight good. Labs and testing Requisition provided for Depakote level Plan Continue IOP as the structured setting is necessary to maintain gains and prevent decompensation. Risk-benefit alternative of medications discussed with patient. Patient acknowledges understanding. Increase Depakote ER to 250 mg p.o. every morning and 500 mg p.o. nightly for 3 days. Then increase Depakote ER 2 1000 mg nightly. Decrease Effexor to 150 mg daily for 1 week then 75 mg daily. Encouraged to establish with outpatient psychiatric providers for when IOP complete. 20 minutes of Insight oriented psychotherapy provided including cope ahead skills. Patient acknowledges understanding and is in agreement with plan. Feels able to maintain safety. Agrees to seek help or emergency care if feeling unsafe to self or others.
--- NOTE | 2017-12-08 09:05 | BH.SGPN.GN ---
Behaviors/Verbalizations/Mental Status: [Client maintained good eye contact -engaged in the discussion and an active participant throughout. She was willing to provide input however at times struggled with remaining on topic. Motor activity was WNL. She was casually dressed, appropriate grooming/hygiene. Client speech was a normal rate and tone - at times interrupting others to ask questions related to Client intrusive thoughts, mood appearing anxious, preoccupied, affect congruent with mood, thoughts linear -ruminative in nature,preoccupied,client at times engaging in self-deprecating talk, no evidence of delusions or hallucinations.Therapist reviewed client?s symptom tracker to assess for intensity of mental health symptoms and identify risk for suicide. No signs of suicidal ideation, plan, or intent to date.] Client Response/Progress/Benefit: [Client receptive of session and actively engaged throughout the discussion, however at times struggled with interrupting fellow participants as they shared to either provide supportive feedback or ask a loosely associated questions related to intrusive thoughts of client own difficulties with boundary setting. Client discussed biggest positive for the day is that she successfully set a boundary with a toxic person in her life after struggling to do so for 10 years. Client indicated this had been much easier than she expected and feels relieved and proud that she moved forward in doing so. Client benefitted from supportive feedback and challenges provided by fellow participants regarding client frustrations in feeling forced to make decisions on her own life based on guilt or others emotions. Client displaying progress in her levels of receptivity and ability to process feedback provided. Recommended continued IOP tx to improve overall emotion regulation and rational decision making as well as prevent decompensation.] Narrative Note: []
--- NOTE | 2017-12-08 10:30 | BH.SGPN.GN ---
Behaviors/Verbalizations/Mental Status: [] Client alert and oriented, neatly dressed and groomed. Eye contact fair. Motor activity appropriate. Speech within normal limits. Affect constricted, mood irritable. Thoughts linear, logical, no signs of hallucinations or delusions. Client Response/Progress/Benefit: []Client responded well to session, participating in discussion. Client reported one can have external conflict and internal conflict. Client identified barriers to resolving conflict such as cognitive distortions, self-sabotage, and mental health. Client shared she tends to manage conflict well at her job, but client reports handling conflict aggressively at home. Client helped the group discuss the four different conflict resolution styles including when it is helpful and not helpful to use each style. Client shared she most often uses the competing style, especially with her family. Client stated, ?I don?t understand why I?m so much more aggressive with them.? Client recognizes her relationships, self-esteem, and communication are all negatively impacted by how client manages conflict. Client appeared to benefit from gaining awareness of how her current conflict resolution style impacts her mental health and relationships. Client to continue IOP to promote mood stability and increase awareness of self-sabotaging behaviors.
--- NOTE | 2017-12-08 11:35 | BH.SGPN.GN ---
Behaviors/Verbalizations/Mental Status: []Client alert and oriented, neatly dressed and groomed. Eye contact good. Motor activity appropriate. Speech within normal limits. Affect brighter-laughing and joking with peers, mood euthymic. Thoughts linear, logical, no signs of hallucinations or delusions. Client Response/Progress/Benefit: []Client responded well to session, active participant. Client participated in the group activity and was able to use a collaborative conflict resolution style instead of competing. Client shared teamwork and listening positively impact conflict resolution. Client helped the group identify strategies to more effectively manage conflict such as focusing on the most important thing, avoiding blaming or degrading language, managing stress, and giving oneself breaks. Client shared she wants to improve her communication and conflict resolution skills with her family. Client appeared to benefit from learning strategies to improve conflict resolution. Client to continue IOP as she reports improved mood today, but she continues to experience mood instability and difficulty with interpersonal relationships.
--- NOTE | 2017-12-10 14:53 | BH.COMM_ITS ---
Communication Note - Communication with Client Communication Note: Therapist called client as she no called/ no showed for her scheduled IOP session today. Client was tearful on the phone and reported she had been crying, but that she was okay, really. Client reported belief changes in her medication triggered her depressed mood today. Per client's report, she has stopped taking her Effexor and increased her Depakote which client shared was recommended by [facility]. Therapist to follow up with treatment team to confirm m edication changes. After further exploration, client recognized she was also triggered by having to work, even though client is on FMLA, and from a recent conversation with someone in client's life. Client reported she was crying as she was driving, but stated she felt safe to continue driving. Therapist discussed possible strategies to improve mood and break negative maintenance cycles that have kept client stuck in the past. Client appeared somewhat receptive to these suggestions as she reported willingness to write down her negative thoughts and challenge them. Therapist offered for client to attend group tomorrow, 12/11/17, but client reported being unable to. Client stated plan to attend group on Friday12/12/17. Client encouraged to use healthy coping skills to manage depressive symptoms, reach out to positive supports, and challenge self-deprecating talk.
--- NOTE | 2017-12-12 08:40 | BH.COMM_ITS ---
Communication Note - Communication with Client Communication Note: cancelled IOP today. Spoke with pt over the phone. Clarified medication changes. She did not stop her Effexor and is currently taking 75mg as prescribed. Has an emergency issue with her aunt today and she has to take her to [facility]. Plans on attending on Friday
--- NOTE | 2017-12-15 09:05 | BH.SGPN.GN ---
Behaviors/Verbalizations/Mental Status: []Client alert and oriented, neatly dressed and groomed. Eye contact avoidant. Motor activity appropriate. Speech within normal limits. Affect labile-client smiling then on again off again crying. Mood pessimistic. Thoughts circular, no signs of hallucinations or delusions. Reviewed client?s symptom tracker and spoke with client as she did not fill out the section for thoughts of suicide. Client denied ideation, plan, or intent as of 12/15/17. Client Response/Progress/Benefit: []Client responded somewhat well to session, providing supportive statements to peers, but not receptive to challenging distorted thought patterns. Client reports feeling ?shameful and selfish? 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 The group attempted to help client challenge cognitive distortions and recognize the importance of self-care, but client disqualified the strategies saying they are not true for her. Client was able to identify going to moravian with her son and seeing her daughter as positives. Client appeared to benefit from providing supportive statements to peers, but she continues to report self-sabotaging behaviors and disqualifies strategies that may benefit her which could hinder progress.
--- NOTE | 2017-12-15 11:15 | BH.SGPN.GN ---
Behaviors/Verbalizations/Mental Status: []Client alert and oriented, neatly dressed and groomed. Eye contact avoidant. Motor activity appropriate. Speech within normal limits. Affect congruent. Mood pessimistic. Thoughts circular, no signs of hallucinations or delusions. Client Response/Progress/Benefit: []Pt listened attentively to others and contributed thoughts and ideas to discussion. Pt added her thoughts to discussion about the different types of social support. Pt identified the type of support she wants to focus on is getting professional help specifically marriage counseling. Pt reported her goal is to call the couples counselor this week. Pt seemed to benefit from increased awareness of the different types of support she can use as well as identifying a goal that will help her utilize one type of support. Pt to continue IOP level of care to stabilize moods and prevent decompensation. Narrative Note: []
--- NOTE | 2017-12-15 14:56 | BH.MDN_ITS ---
Multi-Disciplinary Note - Note 60-min Individual Time Started:: 10:10 Date: 12/15/17 Purpose of session/treatment goals addressed:: Assess current functioning and symptoms. Addressed treatment goal 1 objective 1 Eye Contact:: Intense Motor Activity:: Restless Appearance:: Casual Speech:: Rapid Mood:: Anxious, Irritable, Depressed Affect:: Labile Thoughts:: Linear, Logical, No evidence of hallucinations/delusions noted Staff Interventions:: Utilized a thought record during the session to clarify situation, thoughts, emotions, behaviors, and cognitive distortions. Gave pt assignment to complete thoughts record at home. Gave education on mistaken be liefs as well. Confronted pt on self-destructive behaviors. Client Response:: Pt presented to individual session tearful after first group. No specific trigger to crying spells. Continues to ruminate on her relationship with and children. Has been repeating common theme that she feels irrelevant at home, however follows with contradicting statments that her depression is not related to her family. When confronted she showed insight that a majority of her emotional crises involve her marriage and percieved lack of other's needing her. Becoming aware that her self-esteem is dependent on other's love and approval. Discussed this past week an episode were she left after an argument hoping that when she got back her would react to her leaving and shower her with affection. When this did not occur it caused more emotional distress. Admits to self-sabatoge and starting arguements to get others to verbalize thier need for her. Awareness of how these behaviors and poor communication are effecting her marriage and family life. Unsure of her future with however agrees that they would benefit from attempting to improve things through counseling. She discussed a local marriage program which she was interested in and agrees to look further into this. Risks/Concerns:: No risks or concerns noted. Denies any suicidal ideations, plan, or intent. Progress Toward Goals/Plan:: Limited progress due to poor attendance and self- sabatoging behaviors. She originally agreed to take some time off work to complete program however has not followed through. Orignally denied that family and are related to depression however primary stressor involves marriage and lack of feeling appreciated at home. Starting to gain insight and awareness however is not utilizing skills learned in group in consistent manner. Admits to self-destructive, passive aggress, and self-sabatoging behaviors which are also limited progress. Plan is to continue in IOP. Pt has agreed to look into marriage counseling to improve communication, which she orginally refused. More open to after-care counseling and psychiatry which is another sign of progress. Denies any suicidal ideations in the past few weeks reporting decreased frequency, intensity, and duration of SI. Denies any panic attacks in the past week. However primary concern is erratic mood swings and labile mood Time Stopped:: 11:10
--- NOTE | 2017-12-16 09:05 | BH.SGPN.GN ---
Behaviors/Verbalizations/Mental Status: [] Eye contact is good. Motor activity is appropriate. Appearance is neat. Speech is Appropriate. Mood is anxious. Affect is congruent. Thoughts are linear and logical. No evidence of psychosis. Reviewed daily check in sheet and no reports of suicidal ideations or intent. Client Response/Progress/Benefit: [] Pt was an active participant in group discussion. Stated that her mood is much improved from yesterday. Reports that her mood was horrible yesterday morning however after counseling she felt much improved. Reports increased communication with family yesterday. Her is coming home from [place] today. Future-oriented and reports trying to make some positive changes which include gym membership. Benefited from group support. Progress noted from yesterday noting that some insight and awareness from yesterday improved communication with family and decreased negative thinking. Will continue in IOP to prevent decompensation and maintain gains. Continues to struggle with sustained stability often related to stressors and irrational thoughts and distortions. Narrative Note: []
--- NOTE | 2017-12-16 10:10 | BH.SGPN.GN ---
Behaviors/Verbalizations/Mental Status: []Eye contact is good. Motor activity is appropriate. Appearance is neat. Speech is Appropriate. Mood is anxious. Affect is congruent. Thoughts are linear and logical. No evidence of psychosis. Client Response/Progress/Benefit: []Pt responded well to session as shown by pt contributing to group discussion and attentive to others. Pt reported she could relate to others that without goals she feels lost. Pt shared despite knowing goals are important to set she identified low self esteem to be a barrier to following through with goals because believes I'm not good enough to be successful. Recognizes her negative self-talk hinders her ability to accomplish goals. Seemed to benefit from learning about setting SMART goals and rehearsing setting small goals in the moment. Narrative Note: []
--- NOTE | 2017-12-16 11:20 | BH.SGPN.GN ---
Behaviors/Verbalizations/Mental Status: []Eye contact is good. Motor activity is appropriate. Appearance is neat. Speech is Appropriate. Mood is anxious. Affect is congruent. Thoughts are linear and logical. No evidence of psychosis. Client Response/Progress/Benefit: [] Client active participant as evidenced by contributing to discussion and listening to others. Client reported her goal for the week is to go to the gym at least twice after she leaves [facility]. Client identified benefits to the school includes increased lung capacity, losing weight, and improving physical health. Client reported obstacles that could potentially get in the way of accomplishing the school to include: being lazy, self-defeating thoughts, money, time, and worried about what other's are thinking of her. Pt shared potential solutions to her obstacles include: using her support system and reminding self about benefits of working out. Pt seemed to benefit from identifying a SMART goal and identifying ways she can overcome potential barriers. Pt continues to struggle with using self-deprecating talk, which could be hindrance to treatment progress if continues to reinforce negativity. Pt to continue IOP level of care to stabilize moods, increase generalization of skills, and prevent decompensation. Narrative Note: []
--- NOTE | 2017-12-17 14:45 | BH.COMM ---
Communication Note - Communication with Client Communication Note: Pt did not show up for IOP today. Called patient and there was miscommunication. Will be at IOP tomorrow.
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
--- NOTE | 2017-12-24 10:10 | BH.SGPN.GN ---
Behaviors/Verbalizations/Mental Status: [] Pt eye contact good, casually dressed, motor activity appropriate, speech normal rate and tone, rambling at times, mood anxious and depressed, congruent affect, thoughts linear and intact, no evidence of delusions or hallucinations. Client Response/Progress/Benefit: []Pt engaged in session AEB pt sharing thoughts and feelings and listened attentively to others. Pt connected with the quote because she can think of many situations in which she wanted to make a change, but fear she might hurt someone by making the change kept her from doing anything . Pt shared the following are things that keep her stuck: putting others first, hate talk towards others, anger, not feeling support, feeling stupid, feeling irrelevant to others, and distorted thoughts. Pt identified feeling irrelevant to be keeping her stuck the most. Pt seemed to benefit from increased awareness of what is contributing to pt staying stuck and not moving forward. Narrative Note: []
--- NOTE | 2017-12-24 11:15 | BH.SGPN.GN ---
Behaviors/Verbalizations/Mental Status: [] Pt eye contact good, casually dressed, motor activity appropriate, speech normal rate and tone, mood anxious and depressed, congruent affect, thoughts linear and intact, no evidence of delusions or hallucinations. Client Response/Progress/Benefit: []Pt listened attentively to others and was engaged in creating small goals for the next couple of weeks. Pt reported for her plan she is focusing on decreasing negative talk towards her family. Pt shared her first small goal is to change negative into positive and if gets aggravated she will have a list prepared fo positive words she can use. Pt reported her second small goal is to tell both her and son 3 things they did that made her feel relevant or happy. Pt shared third small goal will be to reduce how much time she is spending on facebook as a strategy to decrease negativity in her life. Pt stated the last goal she will focus on is using a stop technique to help her decrease catastrophizing. Pt seemed to benefit from creating small goals she can focus on throughout the month. Pt to continue IOP level of care to stabilize moods, increase generalization of skills and prevent decompensation. Narrative Note: []
--- NOTE | 2017-12-24 14:53 | BH.COMM ---
Communication Note - Communication with Client Communication Note: Met with pt to check-in due to sporadic attendance. Discussed discharge for next week and discussed aftercare plan. Pt was given list of therapist and psychiatrists and asked to research. Plan is to make appts during next IOP day and for dischage next week.
--- NOTE | 2017-12-24 14:59 | BH.COMM_ITS ---
Communication Note - Communication with Client Communication Note: Met with pt to check-in due to sporadic attendance. Di scussed discharge for next week and discussed aftercare plan. Pt was given list of therapist and psychiatrists and asked to research. Plan is to make appts during next IOP day and for dischage next week.
--- NOTE | 2017-12-24 15:31 | BH.MTP_ITS ---
Treatment Plan Review Date of Admission:: 11/05/17 Date of Treatment Plan Review:: 11/10/17 Admitting Diagnoses:: Bipolar, most recent depressed with mixed episodes Current Diagnoses:: Bipolar Patient's Response to Treatment:: Attendance has been primary obstacle to progress. She is an active participant in group and individual counseling however struggles when given assignments to complete outside of IOP. Has been given numerous take-home assignments regarding thought records, cognitive distortions, schemas, and other education with no follow-through. Utilizes individual sessions to vent or discuss recent crises. Inconsistent attendance h as also led to decreased individual sessions as therapist is unable to rely on pt to show when agreed upon. Despite attendance and poor follow-up she does report improvement in mood stating that support and accountability from group has been beneficial. Status of Current Problems and Symptoms: Limited progress due to poor attendance and self-sabatoging behaviors. She originally agreed to take some time off work to complete program however has not followed through. Orignally denied that family and are related to depression however primary stressor involves marriage and lack of feeling appreciated at home. Starting to gain insight and awareness however is not utilizing skills learned in group in consistent manner. Admits to self-destructive, passive aggressive, and self-sabatoging behaviors which also limited progress. Plan is to continue in IOP. Pt has agreed to look into marriage counseling to improve communication, which she orginally refused. More open to after-care counseling and psychiatry which is another sign of progress. Progress noted in regards to suicidal ideations as in the past few weeks reporting decreased frequency, intensity, and duration of SI. Continues to reports passive thoughts of . Denies any panic attacks in the past week. Treatment team continues to have concerns for erratic mood swings.Medication compliant per pt. Problem #1 Problem Name:: Client will increase mood stability and decrease depressive symptoms Status of Goals:: Objective 1- Pt has not completed crisis plan. Objective 2- Pt can identify 2-3 negative thinking patterns and cognitive distortions. Can also report strategies to effective stop, challenge, or reframe thoughts however is not consistent with practicing or utiizing these skills. Team Recommendations:: Recommended continued efforts to increase consistent attendance and to ensure aftercare is set up. Problem #2 Problem Name:: Stabilize anxiety level while increasing ability to function Status of Goals:: 0bjective 1- Client has not completed own indivudalize anxiety/mgmt plan. objective 2- Client has not compelted her cost/benefit analysis of anxiety. Inconsistent attendance has effected individual counseling sessions due to scheduling conflicts. Team Recommendations:: Recommended continued efforts to increase consistent attendance and to ensure aftercare is set up.
--- NOTE | 2017-12-29 09:05 | BH.SGPN.GN ---
Behaviors/Verbalizations/Mental Status: []Client alert and oriented, neatly dressed and groomed. Eye contact good. Motor activity appropriate. Speech rapid, interrupting others at times. Affect full, mood euthymic. Thoughts linear, logical, no signs of hallucinations or delusions. Reviewed client?s symptom tracker, no risk for suicidal ideation, plan, or intent as of 12/29/17. Client Response/Progress/Benefit: []Client responded well to session, off topic at times, but providing supportive statements. Client reports feeling ?amazing? today due to ?getting rid of my sister.? Client shared she has been consistent with the boundary she set with her sister for about a week now. Client identified her daily positives as her [id number] getting out of the hospital, maintaining boundaries, and getting a pair of skinny jeans. Client?s stressor is this week is the anniversary of her mother?s passing. Client shared she plans to prepare for this by taking time to reflect and do self-care. Client appeared to benefit from reflecting on positives and identifying a plan to manage her grief. Progress noted in client?s improved mood stability and maintenance of boundaries. Client to discharge from [facility] Friday.
== END 2017-12-31 23:59 ==
LOC: BHIOP 09:00
PROVIDERS: Family Provider Internal Medicine; PCP Internal Medicine; Visit Provider Psychiatry & Neurology Psychiatry
DX: F31.4 Bipolar disorder, current episode depressed, severe, without psychotic features (principal); F44.9 Dissociative and conversion disorder, unspecified; F43.10 Post-traumatic stress disorder, unspecified
CPT/HCPCS: H0035; 90832; 90837; 90853

== ENCOUNTER 2018-01-02 09:00 | Outpatient (RCR) | payer OTHER, SELFPAY ==
--- NOTE | 2018-01-02 09:05 | BH.SGPN.GN ---
Behaviors/Verbalizations/Mental Status: [] Eye contact is good. Motor activity is appropriate. Appearance is neat. Speech is Appropriate. Mood is euthymic. Affect is full. Thoughts are linear and logical. No evidence of psychosis. Reviewed daily check in sheet and no reports of suicidal ideations or intent. Client Response/Progress/Benefit: [] Pt was an active participant in group discussion. Provided appropriate feedback to peers. Emotion for today is positive. Shared that this was her last day in IOP. Stated that in the past 2 weeks she has noticed a decrease in ruminative anxiety, obsessive thoughts, anger, and avoidant behaviors. Reports that she has set boundaries with certain family and had to cut a toxic relationship. Shared certain groups which she found most helpful and educational. Progress noted per pt report. Decreased MH symptoms, improved daily functioning, no suicidal ideations in several weeks, and improived boundaries at home and work. Plan is to discharge pt today from [facility]. Narrative Note: []
--- NOTE | 2018-01-02 10:10 | BH.SGPN.GN ---
Behaviors/Verbalizations/Mental Status: [] Pt eye contact good, casually dressed, motor activity appropriate, speech normal rate and tone, mood depressed and anxious, congruent affect, thoughts linear and intact, no evidence of delusions or hallucinations. Client Response/Progress/Benefit: []Pt listened attentively to others and contributed thoughts and feelings throughout group. When processing the quote pt reported she could relate to the quote that sometimes a failure leads you in the right direction. Pt shared in the past she was fired from a job, which initially led to increased anxiety. However, pt noted by getting fired from that job it opened up new opportunities for her and led her to secure a job with a company that is more positive and shows appreciation for her work. Pt reported it is an example of a situation in which she failed, but then was able to find a better situation. When processing activity pt noted importance of learning from past mistakes so don't make the same ones. Pt seemed to benefit from increased awareness of impact fear of failing can have on mental health. Narrative Note: []
--- NOTE | 2018-01-02 11:27 | BH.DS ---
Discharge Summary - Demographics Date of Admission:: 11/05/17 Discharge Date: 01/02/18 Presenting Problems at Admission:: Pt is a 42 year old female. Hx oF MDD, Bipolar, Anxiety, and PTSD. Previous psychiatric admissions to [facility] and [facility]. Referred to IOP by PCP Dr. Perry due to worsening depression, anxiety, and fleeting SI. Completed initial IOP intake on 09/23/17 however never started program due to overhelming anxiety and fear. Struggles daily with mental health symptoms which affects daily functioning and is interfering with familial and social functioning. Fleeting suicidal ideations for the past several months which occur more days than not. Denies plan however reports thinking about methods. States her intent is low stating protective factors as her children. Denies current suicidal. Endorses isolative behaviors, increased sleep, increased appetite, no energy, no motivation, hopelessness, and worthlessness. Reports marital conflicts and being unhappy at home. Does not feel she is appreciated. Ruminating negative thoughts. Daily anxiety with frequent panic attacks. Not currently linked with outpatient providers. Denies HI or psychosis. Denies substance abuse. Medication compliant. Discharge Diagnoses:: Bipolar, most recent depressed with mixed episodes Reason for Discharge:: No longer meets criteria for IOP level of care. - Treatment Progress During Treatment & Response: Pt reports significant progress during IOP program despite inconsistent attendance. Noted decrease in her DSM Cross-Cutting Symptoms measures from 30 at admission to 19 at discharge. Reports no overwhelming symptoms or significant distress related to depression or anxiety for the past 2 weeks. Notes improved functioing, stable sleep, increased motivation, and denies any suicidal ideations, plan, or intent. Denies any passive thoughts of or daily panic attacks for past several weeks, which was primary concern at admission. Pt did not complete all treatment plan goals as she did not complete Cost/Benefit Analysis for maintaining anxiety. During aftercare session we reviewed her individualized anxiety treatment plan, and her crisis plan. Pt's engagement in treatment and IOP was sporadic however she was an active participant in group counseling when present. Struggles when given assignments to complete outside of IOP. Has been given numerous take-home assignments regarding thought records, cognitive distortions, schemas, and other education with no follow-through. Utilized individual sessions to vent or discuss recent crises. Inconsistent attendance has also led to decreased individual sessions as therapist is unable to rely on pt to show when agreed upon. Issues Still to be Addressed:: marital conflict, communication skills with family, anxiety, depression, boundary setting, and managing negative self-thoughts. Discharge Recommendations/Instructions:: Recommmended to follow up with counseling and psychiatry. Pt had agreed to make appointment with both for 2 weeks prior to admission and failed to follow through despite multiple reminders from therapist. Per pt she spoke with [facility] for counseling, however due to insurance card issues was unable to set up appointment. Reports these issues have been corrected and she will call today. Strongly encouraged her to follow through with these appointments as consistent counseling and medication management are essential for continued stability. Also encouraged her to begin marriage and family counseling as stressors at home often exacerbate her depression. Discharge Handout: Complete Discharge Handout with client on aftercare options and continuity of care.
--- NOTE | 2018-01-02 11:27 | BH.AFTERPLAN ---
Aftercare Plan - Demographics Treatment End Date:: 01/02/18 Psychiatrist:: Luz Maria Rios Psychiatrist Office #:: [phone] [facility]/IOP Therapist:: José Luis Phan Therapist Phone #:: [phone] - Medications Home Medications: Home Medications Trazodone HCl 25 - 50 mg PO QHS PRN 01/19/16 Divalproex (ER) [Depakote ER] 500 mg PO BID 12/26/17 - Plan Details Progress/Aftercare Plan Details:: Pt reports significant progress while in the IOP program. Noted decrease in her DSM Cross-Cutting Symptoms measures from admission to discharge. Reports no overwhelming symptoms or significant distress related to depression or anxiety for the past 2 weeks. Notes improved functioing, stable sleep, increased motivation, and denies any suicidal ideations, plan, or intent. Denies any passive thoughts of or daily panic attacks. Strategies for Success:: You have increased your awareness considerably in this program which is the first step in improving your mental wellness. It has been a pleasure working with you. Good [place] in the Future!! - Appointments Appointments/Referrals to Other Services:: Pt has reached out to [facility] in [place] for counseling services and Dr. Concepcion at [facility] for psychiatry. Currently some issues with her insurance card however she hopes to have this clarified today and appointments made. Therapist will follow up at discharge.
--- NOTE | 2018-01-02 12:03 | BH.IGGP_ITS ---
Aftercare Plan - Demographics Treatment End Date:: 01/02/18 Psychiatrist:: Luz Maria Rios Psychiatrist Office #:: [phone] [facility]/IOP Therapist:: José Luis Phan Therapist Phone #:: [phone] - Medications Home Medications: Home Medications Trazodone HCl 25 - 50 mg PO QHS PRN 01/19/16 Divalproex (ER) [Depakote ER] 500 mg PO BID 12/26/17 - Plan Details Progress/Aftercare Plan Details:: Pt reports significant progress while in the IOP program. Noted decrease in her DSM Cross-Cutting Symptoms measures from admission to discharge. Reports no overwhelming symptoms or significant distress related to depression or anxiety for the past 2 weeks. Notes improved functioing, stable sleep, increased motivation, and denies any suicidal ideations, plan, or intent. Denies any passive thoughts of or daily panic attacks. Strategies for Success:: You have increased your awareness considerably in this program which is the first step in improving your mental wellness. It has been a pleasure working with you. Good [place] in the Future!! - Appointments Appointments/Referrals to Other Services:: Pt has reached out to [facility] in [place] for counseling services and Dr. Concepcion at [facility] for psychiatry. Currently some issues with her insurance card however she hopes to have this clarified today and appointments made. Therapist will follow up at discharge.
--- NOTE | 2018-01-02 12:35 | BH.DS_ITS ---
Discharge Summary - Demographics Date of Admission:: 11/05/17 Discharge Date: 01/02/18 Presenting Problems at Admission:: Pt is a 42 year old female. Hx oF MDD, Bipolar, Anxiety, and PTSD. Previous psychiatric admissions to [facility] and [place]. Referred to IOP by PCP Dr. Perry due to worsening depression, anxiety, and fleeting SI. Completed initial IOP intake on 09/23/17 however never started program due to overhelming anxiety and fear. Struggles daily with mental health symptoms which affects daily functioning and is interfering with familial and social functioning. Fleeting suicidal ideations for the past several months which occur more days than not. Denies plan however reports thinking about methods. States her intent is low stating protective factors as her children. Denies current suicidal. Endorses isolative behaviors, increased sleep, increased appetite, no energy, no motivation, hopelessness, and worthlessness. Reports marital conflicts and being unhappy at home. Does not feel she is appreciated. Ruminating negative thoughts. Daily anxiety with frequent panic attacks. Not currently linked with outpatient providers. Denies HI or psychosis. Denies substance abuse. Medication compliant. Discharge Diagnoses:: Bipolar, most recent depressed with mixed episodes Reason for Discharge:: No longer meets criteria for IOP level of care. - Treatment Progress During Treatment & Response: Pt reports significant progress during IOP program despite inconsistent attendance. Noted decrease in her DSM Cross-Cutting Symptoms measures from 30 at admission to 19 at discharge. Reports no overwhelming symptoms or significant distress related to depression or anxiety for the past 2 weeks. Notes improved functioing, stable sleep, increased motivation, and denies any suicidal ideations, plan, or intent. Denies any passive thoughts of or daily panic attacks for past several weeks, which was primary concern at admission. Pt did not complete all treatment plan goals as she did not complete Cost/Benefit Analysis for maintaining anxiety. During aftercare session we reviewed her individualized anxiety treatment plan, and her crisis plan. Pt's engagement in treatment and IOP was sporadic however she was an active participant in group counseling when present. Struggles when given assignments to complete outside of IOP. Has been given numerous take-home assignments regarding thought records, cognitive distortions, schemas, and other education with no follow-through. Utilized individual sessions to vent or discuss recent crises. Inconsistent attendance has also led to decreased individual sessions as therapist is unable to rely on pt to show when agreed upon. Issues Still to be Addressed:: marital conflict, communication skills with family, anxiety, depression, boundary setting, and managing negative self- thoughts. Discharge Recommendations/Instructions:: Recommmended to follow up with counseling and psychiatry. Pt had agreed to make appointment with both for 2 weeks prior to admission and failed to follow through despite multiple reminders from therapist. Per pt she spoke with [facility] for counseling, however due to insurance card issues was unable to set up appointment. Reports these issues have been corrected and she will call today. Strongly encouraged her to follow through with these appointments as consistent counseling and medication management are essential for continued stability. Also encouraged her to begin marriage and family counseling as stressors at home often exacerbate her depression. Discharge Handout: Complete Discharge Handout with client on aftercare options and continuity of care.
--- NOTE | 2018-01-02 16:25 | BH.MDN ---
Multi-Disciplinary Note - Note 30-min Individual Time Started:: 11:15 Date: 01/02/18 Purpose of session/treatment goals addressed:: Assess current symptoms. Review aftercare plans and treatment plans. Eye Contact:: Good Motor Activity:: Appropriate Appearance:: Casual Speech:: Appropriate Mood:: Euthymic Affect:: Full, Bright Thoughts:: Linear, Logical, No evidence of hallucinations/delusions noted Staff Interventions:: Reviewed treatment plan goals. Reviewed DSM cross-cutting scales and progress. Discussed importance of aftercare. Client Response:: Pt reports I feel like I'm 6 foot tall. Notes significant improvement in mood in the past two weeks. Very appreciative of the program and the skills learned. States that this program has given her hope that treatment can be effective. She discussed numerous postive changes that she has made in the past week regarding setting boundaries and excluding toxic relationships. Admits that she continues to need to work on communication and her marriage which is a biggest contributor to stress and mental health symptoms. Agreeable with plan to discharge today. Risks/Concerns:: No risks or concerns noted. Progress Toward Goals/Plan:: Pt reports significant progress during IOP program despite inconsistent attendance. Noted decrease in her DSM Cross-Cutting Symptoms measures from 30 at admission to 19 at discharge. Reports no overwhelming symptoms or significant distress related to depression or anxiety for the past 2 weeks. Notes improved functioing, stable sleep, increased motivation, and denies any suicidal ideations, plan, or intent. Denies any passive thoughts of or daily panic attacks for past several weeks, which was primary concern at admission. Pt did not complete all treatment plan goals as she did not complete Cost/Benefit Analysis for maintaining anxiety. During aftercare session we reviewed her individualized anxiety treatment plan, and her crisis plan. Pt's engagement in treatment and IOP was sporadic however she was an active participant in group counseling when present. Struggled when given assignments to complete outside of IOP. Has been given numerous take-home assignments regarding thought records, cognitive distortions, schemas, and other education with no follow-through. Utilized individual sessions to vent or discuss recent crises. Inconsistent attendance has also led to decreased individual sessions as therapist is unable to rely on pt to show when agreed upon. Time Stopped:: 11:45
== END 2018-01-02 13:39 | disposition home health service (06) ==
LOC: BHIOP 09:00
PROVIDERS: Family Provider Internal Medicine; PCP Internal Medicine; Visit Provider Psychiatry & Neurology Psychiatry
DX: F31.9 Bipolar disorder, unspecified (principal)
CPT/HCPCS: H0035; 90832; 90853

== ENCOUNTER 2019-01-21 08:17 | Emergency (ER) | payer OTHER, SELFPAY ==
[2019-01-21 08:18] VITALS: BP 106/84; PULSE 84; RESP 14; TEMP 36.7; O2SAT 100; BMI 24.0
--- NOTE | 2019-01-21 08:32 | ED.DCSUM_ITS ---
- ER Visit Summary Date of Service: 01/21/19 Chief Complaint: Anxiety History of Present Illness: The patient is a 43 F presenting with anxiety. Patient states she has been having increasing anxiety over the past 2 weeks. She denies suicidal ideation. She talked to on-call psychiatry from [facility] and was advised to come to the ED. She was recently started on Prozac approximately one week ago. She states she has had no appetite and has been losing weight. She complains of nausea and vomiting. Denies fever. She states she does not have abdominal pain but has not felt like eating. She states she has been under increased stress and recently informed her that she had an affair. Physical Examination: Vitals are stable. Patient is afebrile. Alert no acute distress. HEENT exam is unremarkable. Neck is supple. Lungs are clear and equal bilaterally. Heart is regular rate and rhythm. Abdomen is soft nontender nondistended. No guarding or rebound Extremities are unremarkable. Skin is warm and dry. No focal neurologic deficit. Anxious, depressed affect Remainder of exam is unremarkable. Emergency Department Course and Treatment: Patient was given IV fluids, Zofran, Ativan. CBC, chemistries unremarkable. hCG negative. Alcohol and tox are negative. Discussed with social work and patient will be evaluated by social work in the ED. Patient continues to deny suicidal ideation. She has an upcoming appointment with her psychiatrist. Social work and patient are comfortable with discharge home. She is given short course of Ativan for home. Advised to return to the ED for worsening complaints. Disposition: Discharge home Impression: Anxiety This note was generated with [employer] dictation software. It may contain incorrect words, spelling, and punctuation that were not noted in review of the chart prior to signing ED Disposition - Plan for ED Patient: Instructions: Anxiety Reaction Prescriptions: Lorazepam [Ativan] 0.5 mg PO TID PRN #6 tab PRN Reason: Anxiety Prescription Printed Referrals: Nida Light MD [Primary Care Provider] -
[2019-01-21] MEDS: 0.9% Normal Saline 1,000 ML 1000 ML IV (08:59)
[2019-01-21] MEDS: Ondansetron 4 MG/2 ML Vial IV (08:59)
[2019-01-21] MEDS: LORazepam 1 MG Tablet PO (09:00)
[2019-01-21 09:06] LABS: Absolute Lymphocyte Count 0.76 X10^3/uL (0.83-4.51); Absolute Neutrophil Count 4.7 X10^3/uL (2.0-7.7); Basophil# 0.03 X10^3/uL; Basophil% 0.5 % (0-1); Eosinophil# 0.02 X10^3/uL; Eosinophils% 0.3 % (0-5); Hematocrit 39.6 % (37-47); Hemoglobin 13.4 g/dL (12.0-15.0); Lymphocyte # 0.76 X10^3/ul (4.0); Lymphocyte % 12.9 % (19-41); Mean Corp Hgb Conc 33.8 g/dL (32-36); Mean Corpuscular Hgb 29.8 pg (27.0-32.0); Mean Platelet Vol. 10.6 fl (6.2-12.0); Monocyte# 0.36 X10^3/uL; Monocyte% 6.1 % (0-10); NRBC Flagged by Analyzer 0 % (0-5); Neutrophil # 4.71 X10^3/uL (2.7-7.7); Platelet Count 225 K/mm3 (150-450); RBC Distribution Width CV 12.5 % (11.6-14.6); RBC Distribution Width SD 40.7 fl (35.1-43.9); White Blood Count 5.9 K/mm3 (4.4-11.0)
[2019-01-21 09:16] LABS: Anion Gap 9 (5-15); BUN 7 mg/dL (7-18); BUN/Creat Ratio 7.4 RATIO (10-20); Calcium,Total 9.6 mg/dL (8.5-10.1); Chloride 105 mmol/L (98-107); Creatinine, Serum 0.94 mg/dL (0.55-1.02); EST Glomerular Filtration Rate 69 mL/min (>60); Est Glom Filt Rate - Afr Amer 83 mL/min (>60); Estimated Creatinine Clearance 75.04 ml/min; Glucose 113 mg/dL (74-106); Potassium 3.7 mmol/L (3.5-5.1); Sodium Level 142 mmol/L (136-145)
[2019-01-21 09:17] LABS: Internal QC Validated? YES +Cl - CLEAR BKGD; Pregnancy, Serum, hCG Quali. NEGATIVE Negative
[2019-01-21 09:27] LABS: Alcohol, Blood (Medical)-Serum < 3.0 mg/dL
[2019-01-21 09:29] LABS: Amphetamine Urine VISTA NEGATIVE (<1000 ng/mL); Barbiturate Urine VISTA NEGATIVE (< 200 ng/mL); Benzodiazepine Urine VISTA NEGATIVE (< 200 ng/mL); Cocaine Urine VISTA NEGATIVE (< 300 ng/mL); Ecstacy Urine VISTA NEGATIVE (< 500 ng/mL); Methadone Urine VISTA NEGATIVE (< 300 ng/mL); PCP Urine VISTA NEGATIVE (< 25 ng/mL); THC Urine VISTA NEGATIVE (< 50 ng/mL); Vista UDS pH Range 5
--- NOTE | 2019-01-21 10:50 | CM.ED ---
SOCIAL WORK INFORMANT: DR. SHI REASON FOR REFERRAL: ANXIETY MET WITH PATIENT IN ROOM. PATIENT LAYING IN BED WITH EYES CLOSED UPON ENTERING ROOM. INTRODUCED ROLE AND REASON FOR REFERRAL. PATIENT REPORTS HAS BEEN ANXIOUS FOR THE LAST 2 WEEKS. PATIENT REPORTS I STEPPED OUT ON MY . PATIENT STATES JUST TOLD ABOUT THE AFFAIR LAST NIGHT. PATIENT REPORTS JUST STARTED MEDICATIONS, TRAZODONE AND PROZAC ABOUT A WEEK AGO. PATIENT STATES HAS BEEN FEELING MORE ANXIOUS. PATIENT STATES FEELS LIKE HEART IS POUNDING THROUGH HER CHEST AND IS NAUSEOUS. PATINET STATES HAS LOST 7LBS IN 2 WEEKS SHE HAS NOT HAD AN APPETITE. , MARC ENTERED THE ROOM AND PATIENT GAVE PERMISSION FOR THIS WORKER TO SPEAK OPENLY WITH PRESENT. AND PATIENT DENY ANY SUICIDAL OR HOMICIDAL IDEATION FOR PATIENT. BOTH DO NOT FEEL PATIENT REQUIRES HOSPITALIZATION. STATES HOSPITALIZATION MAKES IT WORSE AND REPORTS PATIENT WAS HOSPITALIZED 5+ YEARS AGO. MENTAL HEALTH HISTORY: PATIENT STATES HISTORY OF ANXIETY AND DEPRESSION BEGINNING 20 YEARS AGO. PATIENT REPORTS WAS HOSPITALIZED FOR DEPRESSION ABOUT 5+ YEARS AGO. PATIENT DENIES ANY SUICIDAL OR HOMICIDAL IDEATION. PATIENT FOLLOWS WITH PSYCHIATRIST ALEXX DILLON AT THE [facility] [place] AND HAS APPOINTMENT ON January. PATIENT ALSO CONNECTED WITH COUNSELING SERVICES THROUGH [facility]. PATIENT STATES HAS CONTACTED PSYCHIATRIST REGARDING CONCERNS WITH MEDICATIONS. PATIENT HAS BEEN GIVEN ATIVAN HERE IN THE EMERGENCY DEPARTMENT. SUBSTANCE ABUSE HISTORY: PATIENT DENIES ANY HISTORY OF SUBSTANCE ABUSE. COLLABORATION WITH DR. SHI. PATIENT DOES NOT MEET CRITERIA FOR INPATIENT HOSPITALIZATION. PLAN TO D/C PATIENT HOME WITH AND PRESCRIPTION FOR PRN ATIVAN. PATIENT TO FOLLOW UP WITH PSYCHIATRIST. PLAN: HOME WITH . Mj PUENTE MSW, SENIOR FIREWALL ENGINEER.
--- NOTE | 2019-01-21 10:51 | ED.DEP ---
ED Disposition - Plan for ED Patient: Instructions: Anxiety Reaction Prescriptions: Lorazepam [Ativan] 0.5 mg PO TID PRN #6 tablet PRN Reason: Anxiety Referrals: Nida Light MD [Primary Care Provider] -
[2019-01-21 11:15] VITALS: PULSE 79; RESP 18; O2SAT 99
--- NOTE | 2019-01-21 11:16 | ED.RN ---
THIS NURSE REVIEWED D/C INSTRUCTIONS WITH PT. PT VERBALIZED UNDERSTANDING OF INSTRUCTIONS. IV D/C. IV CATHETER INTACT. PT TOLERATED WELL. PT DENIES FURTHER NEEDS OR QUESTIONS AT THIS TIME.
== END 2019-01-21 11:16 | disposition home or self-care (01) ==
LOC: ED 08:57
PROVIDERS: Emergency Provider Emergency Medicine; Family Provider Internal Medicine; PCP Internal Medicine
DX: F41.9 Anxiety disorder, unspecified (principal); F31.9 Bipolar disorder, unspecified
CPT/HCPCS: 80048; 80307; 80320; 84703; 85025; 96361; 96374; 96375; 99285; J7030; A4216; G0480; J2405

== ENCOUNTER 2020-07-10 10:11 | Emergency (ER) | payer OTHER, SELFPAY ==
[2020-07-10 10:11] VITALS: BP 105/73; PULSE 92; RESP 18; TEMP 36.2; O2SAT 98; BMI 31.1
--- NOTE | 2020-07-10 10:26 | ED.VIS.BACK ---
HPI History of Present Illness Chief Complaint: Back Informant: patient and family Narrative Narrative: Patient presents with lumbar back pain. She has had this for about a month and a half. The pain is in the lumbar region and radiates downward towards the tailbone. She denies any falls or trauma. She has seen a chiropractor and her PCP. She had some relief with a steroid Dosepak but the pain returned. She has not had physical therapy for her low back. She has been trying Tylenol without any relief. She states her pain was worse last night. The pain does not radiate down the legs. She denies any bowel or bladder incontinence or retention. She denies any dysuria or hematuria PFSH PFSH Home Medications trazodone 25 - 50 mg PO QHS PRN 01/19/16 [History Last Taken 03/27/17] divalproex 500 mg PO BID 12/26/17 [History Last Taken Unknown] lorazepam 0.5 mg PO TID PRN #6 tab 01/21/19 [Rx Last Taken Unknown] cyclobenzaprine 10 mg PO TID PRN #20 tablet 07/10/20 [Rx Last Taken Unknown] diflunisal 500 mg PO BID PRN #20 tab 07/10/20 [Rx Last Taken Unknown] gabapentin [Neurontin] 300 mg PO TID 07/10/20 [History Last Taken Unknown] Allergy/AdvReac Type Severity Reaction Status Date / Time No Known Allergies Allergy Verified 07/10/20 10:11 Family History Other ADHD Anxiety Bipolar 1 disorder Social History Smoking Status: Never smoker ROS ROS ED Constitutional Constitutional ED: Denies chills or fever(s) Eyes Eyes: Denies blurry vision, change in vision or diplopia ENT ENT ED: Denies ear pain, rhinorrhea or sore throat Cardiovascular Cardiovascular: Denies chest pain or palpitations Respiratory/Chest Respiratory/Chest: Denies cough, dyspnea or sputum Gastrointestinal Gastrointestinal: Denies abdominal pain, diarrhea, nausea or vomiting Genitourinary Genitourinary ED: Denies dysuria, hematuria or urinary frequency Musculoskeletal Musculoskeletal: Reports back pain Integumentary Denies change in pigmentation or rash Neurologic Neurologic: Denies headache(s), numbness or weakness Psychiatric Psychiatric: Denies anxiety or depression Endocrine Endocrinology: Denies polydipsia or polyuria EXAM Physical Exam Const Vital Signs: 07/10/20 10:11 Temperature 97.1 F L Temperature Source Temporal Pulse Rate 92 Respiratory Rate 18 Blood Pressure 105/73 Blood Pressure Mean 83 Pulse Ox 98 Oxygen Delivery Method Room Air Positive well nourished and well developed General Appearance ED: well developed and NAD HEENT Reports moist mucous membranes normocephalic and atraumatic; Negative for tenderness Eyes PERRL and EOMs intact bilaterally Neck supple and no JVD Chest Wall Chest: Negative for tenderness Resp normal respiratory effort and clear to auscultation bilaterally Effort and Inspection: Negative for respiratory distress Cardio regular rate, regular rhythm and no murmurs Rate: regular rate Rhythm: regular rhythm GI Palpation: soft Back/Spine no CVA tenderness and no thoracic nor lumbar tenderness General Back: Negative for CVA tenderness Cervical Spine: Negative for cervical spine tenderness Extremity normal to inspection and full ROM General Extremety ED: Negative for tenderness Neuro oriented x3, CN's II-XII intact bilaterally and no sensory deficits noted Sensorium / Orientation: awake and alert Motor Exam: strength 5/5 throughout Psych mental status grossly normal Skin no rashes or lesions noted MDM MDM MDM Narrative Medical decision making narrative: X-rays of the lumbar spine reveal degenerative changes. Patient given Norflex and Toradol with some improvement. I will give her refills of Flexeril and give her diflunisal to take at home. She needs to follow-up with her PCP for physical therapy as an outpatient Radiography Diagnostic Testing: Radiology Impression Lumbar Spine X-Ray 07/10/20 11:00 IMPRESSION: Degenerative changes of the spine, as detailed above. Levoscoliosis. Straightening of the normal lumbar lordosis. Electronically Signed: Jamel Curtis MD at 11:46 EDT , Service support , Discharge Plan Triage Chief Complaint: Back ED Provider: Barry Sauer Dx/Rx/DC Orders Clinical Impression: Low back pain Instructions: ED Back and Neck Pain, General Prescriptions: New cyclobenzaprine [cyclobenzaprine] 10 MG tablet 10 mg PO TID PRN (Reason: Muscle Spasm) Qty: 20 RF: 0 diflunisal 500 mg tablet 500 mg PO BID PRN (Reason: pain) Qty: 20 RF: 0 No Action trazodone 50 MG tablet 25 - 50 mg PO QHS PRN (Reason: Insomnia) RF: 0 divalproex 250 MG tablet 500 mg PO BID RF: 0 lorazepam 0.5 MG tablet 0.5 mg PO TID PRN (Reason: Anxiety) Qty: 6 RF: 0 gabapentin [Neurontin] 300 mg capsule 300 mg PO TID RF: 0 Primary Care Provider: Nida Light Referrals: Nida Light MD [Primary Care Provider] - Disposition Disposition: Home, self care
[2020-07-10] MEDS: Orphenadrine 60 MG/2 ML Ampul IM (10:56)
[2020-07-10] MEDS: Ketorolac 30 MG/ML Syringe IM (10:56)
--- NOTE | 2020-07-10 11:00 | RAD_ITS ---
STUDY: X-RAY - LUMBAR SPINE REASON FOR EXAM: Female, 44 years old. Back pain TECHNIQUE: 3 view(s) of the lumbar spine were obtained. COMPARISON: None FINDINGS: There is straightening of the normal lumbar lordosis. There is a levoscoliosis of the lumbar spine. There is a normal alignment of the vertebrae. Normal vertebral bodies and endplates. Mild degree of disc space narrowing at the L3-L4 and L4-L5 levels. The soft tissue structures are unremarkable. RAD/Lumbar Spine 2 or 3 Views IMPRESSION: Degenerative changes of the spine, as detailed above. Levoscoliosis. Straightening of the normal lumbar lordosis. Electronically Signed: Jamel Curtis MD at 11:46 EDT , Service support ,
== END 2020-07-10 12:10 | disposition home or self-care (01) ==
PROVIDERS: Emergency Provider Emergency Medicine; PCP Internal Medicine
DX: M54.5 Low back pain (principal); Z79.899 Other long term (current) drug therapy
CPT/HCPCS: 72100; 96372; 99282

== ENCOUNTER 2020-08-23 20:23 | Emergency (ER) | payer OTHER, SELFPAY ==
[2020-08-23 20:24] VITALS: BP 119/83; PULSE 84; RESP 18; TEMP 36.4; O2SAT 99; BMI 31.8
[2020-08-23] MEDS: Ketorolac 15 MG/ML Vial IV (22:23)
[2020-08-23 23:28] VITALS: BP 118/73; PULSE 87; RESP 16; O2SAT 99
[2020-08-23] MEDS: 0.9% Normal Saline 1,000 ML 999 ML IV (23:30)
[2020-08-23] MEDS: Ondansetron 4 MG/2 ML Vial IV (23:31)
--- NOTE | 2020-08-24 00:11 | EX.ED.VIS.HA ---
HPI History of Present Illness Chief Complaint: Headache Informant: patient Narrative Narrative: Patient is a 44-year-old female with history of bipolar disorder presenting with headache. She does have a history of headaches but usually they are not this severe. Started around 3 PM as she was on drive when her headache started. She started developing some nausea and vomiting with it. She is worried she might be dehydrated. She tried [id number] Dramamine with no significant relief. Patient has associated photophobia. She states that headache was gradual in onset. She reports she had been seen in the ER once for headache in the past and was prescribed Demerol and then proceeded to have a syncopal episode. She is requested to not receive Demerol. No other complaints or concerns at this time. PFSH PFSH Home Medications trazodone 25 - 50 mg PO QHS PRN 01/19/16 [History Last Taken 03/27/17] gabapentin [Neurontin] 300 mg PO TID 07/10/20 [History Last Taken Unknown] fluoxetine 40 mg PO DAILY 08/23/20 [History Last Taken Unknown] ondansetron 4 mg PO Q8H PRN #10 tab 08/24/20 [Rx Last Taken Unknown] Allergy/AdvReac Type Severity Reaction Status Date / Time No Known Allergies Allergy Verified 08/23/20 20:26 Family History Other ADHD Anxiety Bipolar 1 disorder Social History Smoking Status: Never smoker ROS ROS ED Constitutional Constitutional ED: Denies chills or fever(s) Eyes Eyes: Denies blurry vision, change in vision or diplopia ENT ENT ED: Denies ear pain Cardiovascular Cardiovascular: Denies chest pain Respiratory/Chest Respiratory/Chest: Denies dyspnea Gastrointestinal Gastrointestinal: Reports nausea and vomiting; Denies abdominal pain Musculoskeletal Musculoskeletal: Denies arthralgias or myalgias Integumentary Denies rash Neurologic Neurologic: Reports headache(s) Psychiatric Psychiatric: Denies anxiety or depression EXAM Physical Exam Narrative Exam Narrative: Patient laying in the room with the lights off and and eye cover on Const Vital Signs: 08/23/20 20:24 08/23/20 23:28 Temperature 97.6 F L Temperature Source Temporal Pulse Rate 84 87 Respiratory Rate 18 16 Blood Pressure 119/83 H 118/73 Blood Pressure Mean 95 88 Pulse Ox 99 99 Oxygen Delivery Method Room Air Positive well nourished and well developed General Appearance ED: well developed HEENT Reports normocephalic atraumatic Eyes PERRL and EOMs intact bilaterally Neck no lymphadenopathy, supple and no meningeal signs Resp normal respiratory effort and clear to auscultation bilaterally Cardio regular rate and regular rhythm GI non-tender Palpation: soft Neuro oriented x3 and CN's II-XII intact bilaterally Neuro Narrative: No focal deficits appreciated Sensorium / Orientation: awake and alert Psych mental status grossly normal Skin Lesions: no lesions Rashes: no rashes MDM MDM MDM Narrative Medical decision making narrative: Patient is evaluated for headache. It was not sudden onset. Is not the worst headache of her life. She has a normal neurologic exam. She had been given IV fluids and had significant improvement of her symptoms. She not moved she is dehydrated. She is then given Toradol and Zofran. Patient states she feels well and is ready to go home. I do not suspect meningitis. She is given a prescription for Zofran prior to discharge. Patient is counseled on signs and symptoms requiring return to the emergency room. Patient verbalizes agreement and understand this plan. Patient discharged home in stable and improved condition. Discharge Plan Triage Chief Complaint: Headache ED Provider: Vonda Estrada Dx/Rx/DC Orders Clinical Impression: Headache Instructions: ED Headache Unspecified Prescriptions: New ondansetron 4 mg tablet,disintegrating 4 mg PO Q8H PRN (Reason: nausea and vomiting) Qty: 10 RF: 0 No Action trazodone 50 MG tablet 25 - 50 mg PO QHS PRN (Reason: Insomnia) RF: 0 gabapentin [Neurontin] 300 mg capsule 300 mg PO TID RF: 0 fluoxetine 40 mg capsule 40 mg PO DAILY RF: 0 Primary Care Provider: Nida Light Referrals: Nida Light MD [Primary Care Provider] - Disposition Disposition: Home, Self Care Discharge Date/Time: 08/24/20 00:24
== END 2020-08-24 00:24 | disposition home or self-care (01) ==
PROVIDERS: Emergency Provider Emergency Medicine; PCP Internal Medicine
DX: R51.9 Headache, unspecified (principal); F31.9 Bipolar disorder, unspecified; Z79.899 Other long term (current) drug therapy
CPT/HCPCS: 96374; 96375; 99283; A4216; J2405